=== PATIENT | female | born 1995 | race African-American/Black ===

== ENCOUNTER 2017-06-19 02:11 | Observation (INO) | payer MEDICAID ==
[2017-06-19] VITALS (8 sets, daily range): BP systolic 129–136; BP diastolic 60–71; PULSE 109–125; RESP 14–20; TEMP 98–98.1; O2SAT 98–100
[~2017-06-19 02:11] MED LIST: ALBU1.25 NEB; ALBUAER3 INH
[2017-06-19] MEDS ORDERED: ONDANSETRON HCL 4 MG/2 ML VIAL IVP PRN (02:15)
[2017-06-19] MEDS ORDERED: ACETAMINOPHEN 325 MG TAB PO PRN (02:15)
--- NOTE | 2017-06-19 02:52 | HHI.HP ---
[facility] No Primary Care Physician Admission Diagnosis Diagnoses: Chief Complaint: dyspnea and chest tightness Travel History International Travel<30 Days: No Contact w/Intl Traveler <30 Da: No History of Present Illness 21 y/o female with a history of asthma presented to the [place] ED with complaints of cough and chest tightness. She was found to have an elevated D- dimer and was taken for CTA but the timing of the dye did not allow for a clear picture so she was transferred to the main facility for follow up VQ Scan for possible PE. Patient states she woke up out of her sleep with a severe cough and dyspnea. With the cough she experienced chest tightness without any radiation and it was worse when she coughs. She states she has not had an asthma attack in many years and this one felt different. She did use her inhaler at home with no relief. She is currently resting, denies any chest pain , sob, fever or chills. She states she feels much better and is hungry. Denies any headache, nausea, vomiting, or dysuria. Denies any dark stools or heavy menses. She does have irregular menses and was taking control but that has not been recently. Denies any episodes of sitting for long periods of time, no history of PE or blood clotting disorders. She does not have a PCP or sampler first that she follows. Review of Systems Except as stated in HPI: all other systems reviewed are Neg Past Family Social History Past Medical History Asthma Past Surgical History Patient denies any surgical history Reported Medications Reported Meds & Active Scripts Active Reported Albuterol Neb (Albuterol Sulfate) 1.25 Mg/3 Ml Neb 1.25 Mg NEB Q6HR NEB PRN Proair Hfa 8.5 GM Inh (Albuterol Sulfate) 90 Mcg/Act Aer 2 Puff INH Q4-6H PRN 108 mcg/actuation Allergies: Coded Allergies: No Known Allergies (Unverified , 06/18/17) Active Ordered Medications Current Medications Medications (Trade) Dose Ordered Sig/Richie Route Start Time Stop Time Status Last Admin (11/28 NS 1000 ml Inj) 1,000 ml @ 75 mls/hr [id number] IV 06/19/17 02:15 (Tylenol) 650 mg Q4H PRN PO 06/19/17 02:15 (Zofran Inj) 4 mg Q6H PRN IVP 06/19/17 02:15 Methylprednisolone Sodium Succinate 40 mg 40 mg Q6HR IV PUSH 06/19/17 06:00 (Levaquin 750 Mg Premix Inj) 150 ml @ 100 mls/hr Q24H IV 06/19/17 03:00 (Lovenox Inj) 130 mg Q12H SQ 06/19/17 11:00 Family History Grandmother: DM No history of heart disease. Social History Patient denies any tobacco, alcohol or drug use. Physical Exam Physical Exam GENERAL: This is a well-nourished, well-developed patient, in no apparent distress. SKIN: No rashes, ecchymoses or lesions. Cool and dry. HEAD: Atraumatic. Normocephalic. EYES: Pupils equal round and reactive. Extraocular motions intact. ENT: Nose without bleeding, purulent drainage or septal hematoma. Airway patent. NECK: Trachea midline. No JVD or lymphadenopathy. CARDIOVASCULAR: Regular rate and rhythm without murmurs, gallops, or rubs. RESPIRATORY: Clear to auscultation. Breath sounds equal bilaterally. No wheezes , rales, or rhonchi. GASTROINTESTINAL: Abdomen soft, non-tender, nondistended. MUSCULOSKELETAL: Extremities without clubbing, cyanosis, or edema. No joint tenderness, effusion, or edema noted. No calf tenderness. NEUROLOGICAL: Awake and alert. Motor and sensory grossly within normal limits. Normal speech. Assessment and Plan Problem List: (1) Chest pain of uncertain etiology ICD Code: R07.89 Status: Acute (2) Acute asthma exacerbation ICD Code: J45.901 Status: Acute (3) Elevated d-dimer ICD Code: R79.89 Status: Acute (4) Acute kidney injury ICD Code: N17.9 Status: Acute (5) Leukocytosis ICD Code: D72.829 Status: Acute (6) Anemia ICD Code: D64.9 Status: Acute Assessment and Plan 21 y/o female with a history of asthma presented to the [place] ED with complaints of cough and chest tightness. She was found to have an elevated D- dimer and was taken for CTA but the timing of the dye did not allow for a clear picture so she was transferred to the main facility for follow up VQ Scan for possible PE. Acute asthma exacerbation -Albuterol nebs Q4 -Solumedrol IV -O2 if needed Chest pain, with elevated d-dimer, r/o PE D dimer .95, troponin .02, EKG reviewed shows sinus tachycardia CTA reviewed, due to opacification of pulmonary arteries and respiratory movement, PE can not be excluded. -VQ scan in AM -Lovenox for PE prophylaxis -Monitor tele -Serial troponin Leukocytosis, wbc 13.0, fever 100.1, likely reactive will r/o infection -UA ordered -CBC in AM -Levaquin IV Anemia, microcytic, hgb 7.8, no known history, likely chronic -Trend hgb -Iron studies ordered Acute kidney injury, creatine 1.2, unknown baseline, suspect dehydration -IVF for hydration -BMP in AM DVT prophylaxis: Lovenox Discussed Condition With Patient Problem Qualifiers (1) Leukocytosis: Qualified Code: D72.828 - Other elevated white blood cell (WBC) count (2) Anemia: Qualified Code: D64.9 - Anemia, unspecified type Dacia Dotson Jun 19, 2017 02:52
[2017-06-19] MEDS: LEVOFLOXACIN 750 MG PREMIX INJ 150 ML IV SCH (03:02)
[2017-06-19] MEDS: SODIUM CHLOR 0.45% 1000 ML INJ 1,000 ML IV SCH ×3 (03:02→20:22)
[2017-06-19] MEDS: RESP: ALBUTEROL 2.5 MG/3 ML NEB (SCH) NEB ×6 (03:40→23:22)
[2017-06-19] MEDS ORDERED: methylPREDNISolone SOD SUCC 40 MG/1 ML VIAL IV PUSH SCH (06:00)
[2017-06-19 07:19] LABS: AUTOMATED NEUTROPHIL # 11.9 TH/MM3 (1.8-7.7); BASOPHIL % 0.3 % (0.0-2.0); EOSINOPHIL # 0.2 TH/MM3 (0-0.4); EOSINOPHIL % 1.7 % (0.0-4.0); HEMO FLAGS DIFF FINAL; LYMPH % 4.6 % (9.0-44.0); LYMPHOCYTE # 0.6 TH/MM3 (1.0-4.8); MEAN CELL VOLUME 57.3 FL (80.0-100.0); MEAN CORPUSCULAR HEMOGLOBIN 17.5 PG (27.0-34.0); MEAN CORPUSCULAR HGB CONC 30.6 % (32.0-36.0); MONO % 5.5 % (0.0-8.0); NEUT % 87.9 % (16.0-70.0); PLATELET COUNT 345 TH/MM3 (150-450); RED BLOOD COUNT 4.54 MIL/MM3 (4.00-5.30); RED CELL DISTRIBUTION WIDTH 19.3 % (11.6-17.2); WHITE BLOOD COUNT 13.5 TH/MM3 (4.0-11.0)
[2017-06-19 07:50] LABS: FERRITIN 16 NG/ML (8-252); TRANSFERRIN IRON PROFILE 359 MG/DL (200-360)
[2017-06-19 07:54] LABS: ANION GAP 10 MEQ/L (5-15); BICARBONATE 21.3 MEQ/L (21.0-32.0); BLOOD UREA NITROGEN 7 MG/DL (7-18); CHLORIDE 106 MEQ/L (98-107); GLOMERULAR FILTRATION RATE 83 ML/MIN (>89); POTASSIUM 4.1 MEQ/L (3.5-5.1); SODIUM (NA) 137 MEQ/L (136-145)
[2017-06-19] MEDS ORDERED: ENOXAPARIN SODIUM 100 MG/ML SYRINGE SQ SCH (08:00)
--- NOTE | 2017-06-19 09:14 | HHI.PR ---
Subjective Remarks Follow up for anemia, asthma, shortness of breath. The patient reports no further episodes of chest pain or shortness of breath. Denies any cough. Denies any leg swelling or calf pain. She reports history of anemia however denies any further work up for her anemia. She denies any family history of blood/clotting disorders including no sickle cell. She does report menorrhagia, menstrual cycle lasts 7days with significantly heavy flow. Her LMP was 1 month ago. For her asthma, she has albuterol inhaler and nebulizer at home. Objective Vitals Vital Signs Date Time Temp Pulse Resp B/P Pulse Ox O2 Delivery O2 Flow Rate FiO2 06/19/17 07:15 98.0 109 14 129/60 99 06/19/17 03:44 116 20 133/63 100 06/19/17 03:40 98 06/19/17 02:30 116 I/O 06/18/17 06/18/17 06/18/17 06/19/17 06/19/17 06/19/17 07:00 15:00 23:00 07:00 15:00 23:00 Intake Total 510 ml Balance 510 ml Intake Oral 240 ml IV Total 270 ml Result Diagram: 06/19/17 0619 06/19/17 0619 Other Results Laboratory Tests Test 06/19/17 06/19/17 06:19 08:45 White Blood Count 13.5 TH/MM3 Red Blood Count 4.54 MIL/MM3 Hemoglobin 8.0 GM/DL Hematocrit 26.0 % Mean Corpuscular Volume 57.3 FL Mean Corpuscular Hemoglobin 17.5 PG Mean Corpuscular Hemoglobin 30.6 % Concent Red Cell Distribution Width 19.3 % Platelet Count 345 TH/MM3 Mean Platelet Volume 9.5 FL Neutrophils (%) (Auto) 87.9 % Lymphocytes (%) (Auto) 4.6 % Monocytes (%) (Auto) 5.5 % Eosinophils (%) (Auto) 1.7 % Basophils (%) (Auto) 0.3 % Neutrophils # (Auto) 11.9 TH/MM3 Lymphocytes # (Auto) 0.6 TH/MM3 Monocytes # (Auto) 0.7 TH/MM3 Eosinophils # (Auto) 0.2 TH/MM3 Basophils # (Auto) 0.0 TH/MM3 CBC Comment DIFF FINAL Differential Comment Sodium Level 137 MEQ/L Potassium Level 4.1 MEQ/L Chloride Level 106 MEQ/L Carbon Dioxide Level 21.3 MEQ/L Anion Gap 10 MEQ/L Blood Urea Nitrogen 7 MG/DL Creatinine 1.04 MG/DL Estimat Glomerular Filtration 83 ML/MIN Rate Random Glucose 156 MG/DL Calcium Level 9.1 MG/DL Iron Level 16 MCG/DL Total Iron Binding Capacity 503 MCG/DL Percent Iron Saturation 3.2 % Ferritin 16 NG/ML Troponin I LESS THAN 0.02 NG/ML Urine Color YELLOW Urine Turbidity CLEAR Urine pH 6.0 Urine Specific [place] 1.023 Urine Protein NEG mg/dL Urine Glucose (UA) 150 mg/dL Urine Ketones NEG mg/dL Urine Occult Blood NEG Urine Nitrite NEG Urine Bilirubin NEG Urine Urobilinogen LESS THAN 2.0 MG/DL Urine Leukocyte Esterase SMALL Urine RBC LESS THAN 1 /hpf Urine WBC 2 /hpf Urine Squamous Epithelial 3 /hpf Cells Microscopic Urinalysis Comment CULT NOT INDICATED Imaging Last Impressions Chest X-Ray 06/19/17 1108 Signed Impressions: Service Date/Time: Monday, June 19, 2017 13:48 - CONCLUSION: No acute disease. El Solano MD Lung Scan-V Nuclear Medicine 06/19/17 0000 Signed Impressions: Service Date/Time: Monday, June 19, 2017 10:44 - CONCLUSION: Low probability scan for pulmonary embolism Nickolas Waldron MD Lower Extremity Ultrasound 06/19/17 0000 Signed Impressions: Service Date/Time: Monday, June 19, 2017 08:03 - CONCLUSION: Negative for deep venous thrombosis. Zack Cox MD FACR Objective Remarks GENERAL: Well-nourished, well-developed young AA female patient in [facility]. SKIN: Warm and dry. No rash. HEENT: Normocephalic. Atraumatic.Pupils equal and round. Mucous membranes pink and moist. NECK: Supple. Trachea midline. CARDIOVASCULAR: Regular rate and rhythm. S1, S2 noted. No murmur appreciated. RESPIRATORY: No accessory muscle use. Clear to auscultation. Breath sounds equal bilaterally. GASTROINTESTINAL: Abdomen soft, non-tender, nondistended. Normoactive bowel sounds x4. MUSCULOSKELETAL: No obvious deformities. Extremities without clubbing, cyanosis , or edema. Bilateral calves nontender. NEUROLOGICAL: Awake and alert. No obvious cranial nerve deficits. Motor grossly within normal limits. Normal speech. PSYCHIATRIC: Appropriate mood and affect; insight and judgment normal. Procedures NONE Medications and IVs Current Medications Medications (Trade) Dose Ordered Sig/Richie Route Start Time Stop Time Status Last Admin (11/28 NS 1000 ml Inj) 1,000 ml @ 75 mls/hr [id number] IV 06/19/17 02:15 06/19/17 03:02 (Tylenol) 650 mg Q4H PRN PO 06/19/17 02:15 (Zofran Inj) 4 mg Q6H PRN IVP 06/19/17 02:15 Methylprednisolone Sodium Succinate 40 mg 40 mg Q6HR IV PUSH 06/19/17 06:00 06/19/17 06:53 (Levaquin 750 Mg Premix Inj) 150 ml @ 100 mls/hr Q24H IV 06/19/17 03:00 06/19/17 03:02 (Lovenox Inj) 130 mg Q12H SQ 06/19/17 11:00 Urinary Catheter: No Vascular Central Line Catheter: No A/P Problem List: (1) Chest pain of uncertain etiology ICD Code: R07.89 Status: Acute (2) Acute asthma exacerbation ICD Code: J45.901 Status: Acute (3) Elevated d-dimer ICD Code: R79.89 Status: Acute (4) Acute kidney injury ICD Code: N17.9 Status: Acute (5) Leukocytosis ICD Code: D72.829 Status: Acute (6) Anemia ICD Code: D64.9 Status: Acute Assessment and Plan 21-year-old female with a history of asthma and anemia presented to the [facility] ED with complaints of cough and chest tightness. She was found to have an elevated D-dimer and was taken for CTA but the timing of the dye did not allow for a clear picture so she was transferred to [facility] for follow up VQ Scan for possible PE. Acute asthma exacerbation: presented with SOB/chest tightness. -Continue Albuterol nebs Q4 -Given IV Solumedrol however much improved, changed to po Prednisone -O2 if needed, however O2 sat 99-100% on room air today -much improved Chest pain: with elevated d-dimer, r/o PE. D dimer 0.95, troponin .02, EKG reviewed shows sinus tachycardia. -CTA reviewed, due to opacification of pulmonary arteries and respiratory movement, PE can not be excluded. -VQ scan planned for today -check Doppler U/S -Full strength Lovenox for prophylaxis -Monitor on telemetry -ACS rule out with serial troponin negative x2 Leukocytosis, wbc 13.0, fever 100.1, likely reactive, will r/o infection. CT chest negative for infiltrate. -UA ordered and pending -CBC with slight increase of leukocytosis from 13K to 13.5K, suspect secondary to steroid administration -Continue IV Levaquin for now Microcytic Anemia: hgb 7.8, patient reports history of anemia but unknown etiology, does have menorrhagia however LMP 1 month ago -CBC with brionesrichelley bodies, target cells -Iron panel consistent with iron deficiency, will start ferrous sulfate bid with colace -discussed with Dr. Luevano, will consult hematology for further evaluation of anemia -monitor CBC Acute kidney injury: suspect secondary to dehydration. Creatinine 1.2, unknown baseline. -Give IVF for hydration -Repeat BMP shows improvement Cr 1.04 DVT prophylaxis: Lovenox Discharge Planning 0835hrs: Discharge pending doppler U/S, VQ scan, and hematology evaluation. Attending Statement The exam, history, and the medical decision-making described in the above note were completed with the assistance of the mid-level provider. I reviewed and agree with the findings presented. I attest that I had a [id number] encounter with the patient on the same day, and personally performed and documented my assessment and findings in the medical record. Problem Qualifiers (1) Leukocytosis: Qualified Code: D72.828 - Other elevated white blood cell (WBC) count (2) Anemia: Qualified Code: D64.9 - Anemia, unspecified type Ericka Stephens PA-C Jun 19, 2017 09:14 Reji Booth MD Jun 19, 2017 18:03
--- NOTE | 2017-06-19 09:15 | RADRPT ---
EXAM DATE/TIME: 06/19/2017 08:03 [facility] COMPARISON: No previous studies available for comparison. INDICATIONS : Bilateral leg swelling. MEDICAL HISTORY : Asthma. SURGICAL HISTORY : None. ENCOUNTER: Initial ACUITY: 2 day PAIN SCORE: 0/10 LOCATION: Bilateral leg. TECHNIQUE: Venous ultrasound of the left and right leg was performed from the inguinal ligament to the proximal calf. Real-time, color Doppler and spectral tracing, compression and augmentation techniques were us ed. FINDINGS: RIGHT LEG: There is normal compressibility of the deep venous system from the inguinal region to the proximal ca lf. No echogenic clot is seen in the lumen of the common femoral, femoral, popliteal, and posterior tibial veins. There is a normal response of the venous system to proximal and distal augmentation an d respiration. LEFT LEG: There is normal compressibility of the deep venous system from the inguinal region to the proximal ca lf. No echogenic clot is seen in the lumen of the common femoral, femoral, popliteal, and posterior tibial veins. There is a normal response of the venous system to proximal and distal augmentation an d respiration. CONCLUSION: Negative for deep venous thrombosis. Zack Cox MD FACR on June 19, 2017 at 9:13 Board Certified Radiologist. This report was verified electronically.
[2017-06-19 09:36] LABS: BLOOD, URINE NEG (NEG); COMMENT (UR) CULT NOT INDICATED; CULTURE IF INDICATED CULT NOT INDICATED; GLUCOSE,URINE 150 mg/dL (NEG); KETONE, URINE NEG (NEG); NITRITE,URINE NEG (NEG); SQUAMOUS EPITHELIAL CELL URINE 3 /hpf (0-5); URINE COLOR YELLOW (YELLW/STRAW)
[2017-06-19] MEDS: FERROUS SULFATE 325 MG (65 MG ELEMENTAL IRON) TAB PO SCH ×2 (12:05→18:14)
[2017-06-19] MEDS: ENOXAPARIN SODIUM 100 MG/ML SYRINGE SQ SCH (12:06)
--- NOTE | 2017-06-19 13:08 | RADRPT ---
EXAM DATE/TIME: 06/19/2017 10:44 [facility] COMPARISON: CT PULMONARY ANGIOGRAM, June 18, 2017, 22:50. US LEG BILATERAL VENOUS DOPPLER, June 19, 2017, 8:03. INDICATIONS : Short of breath and chest tightness. DOSE: 1.4 mCi Tc99m DTPA 8.5 mCi Tc99m MAA MEDICAL HISTORY : Asthma. SURGICAL HISTORY : None. ENCOUNTER: Initial ACUITY: 1 day PAIN SCALE: 2/10 LOCATION: Bilateral chest TECHNIQUE: Following five minutes of tidal breathing of DTPA aerosol, planar images of the lungs were performed in eight projections. The patient was then injected with MAA, and eight-view perfusion scan was perf ormed. FINDINGS: There is a homogeneous pattern of aerosol delivery to the periphery of both lungs. No focal ventilat ory defects are seen. The perfusion lung scan demonstrates a homogenous pattern of uptake in both lungs. No segmental or s ubsegmental defects are seen. CONCLUSION: Low probability scan for pulmonary embolism Nickolas Waldron MD on June 19, 2017 at 12:52 Board Certified Radiologist. This report was verified electronically.
--- NOTE | 2017-06-19 14:16 | RADRPT ---
EXAM DATE/TIME: 06/19/2017 13:48 [facility] COMPARISON: LUNG VENTILATION & PERFUSION SCAN, June 19, 2017, 10:44. INDICATIONS : Eval VQ scan. MEDICAL HISTORY : Asthma. SURGICAL HISTORY : None. ENCOUNTER: Subsequent ACUITY: 1 day PAIN SCORE: 0/10 LOCATION: Bilateral chest FINDINGS: A single view of the chest demonstrates the lungs to be symmetrically aerated without evidence of mas s, infiltrate or effusion. The cardiomediastinal contours are unremarkable. Osseous structures are intact. CONCLUSION: No acute disease. El Solano MD on June 19, 2017 at 14:14 Board Certified Radiologist. This report was verified electronically.
[2017-06-19] MEDS ORDERED: predniSONE 20 MG TAB PO SCH (18:00)
[2017-06-19 18:26] LABS: HEMOGLOBIN A1a 1.6 %; HEMOGLOBIN A1b 1.5 %; HEMOGLOBIN Ao 84.7 %; HEMOGLOBIN LA1C 2.2 %; HEMOGLOBIN P3 3.5 %
[2017-06-19] MEDS: DOCUSATE SODIUM 100 MG CAP PO SCH (20:19)
[2017-06-19 21:02] LABS: MEAN CORPUSCULAR HGB CONC 29.6 % (32.0-36.0)
[2017-06-19] MEDS ORDERED: IRON SUCROSE INJ 200 MG in SODIUM CHLORIDE 0.9% INJ 100 ML IV SCH (22:30)
[2017-06-20] VITALS (10 sets, daily range): BP systolic 113–139; BP diastolic 56–78; PULSE 67–112; RESP 14–18; TEMP 97.7–99.1; O2SAT 97–100
[2017-06-20] MEDS: ENOXAPARIN SODIUM 100 MG/ML SYRINGE SQ SCH (00:12)
[2017-06-20] MEDS: SODIUM CHLOR 0.45% 1000 ML INJ 1,000 ML IV SCH ×2 (03:02→08:45)
[2017-06-20] MEDS: LEVOFLOXACIN 750 MG PREMIX INJ 150 ML IV SCH (03:02)
[2017-06-20] MEDS: RESP: ALBUTEROL 2.5 MG/3 ML NEB (SCH) NEB ×5 (03:49→21:41)
[2017-06-20 07:24] LABS: AUTOMATED NEUTROPHIL # 14.1 TH/MM3 (1.8-7.7); BASOPHIL % 0.1 % (0.0-2.0); HEMATOCRIT 24.9 % (35.0-46.0); HEMO FLAGS DIFF FINAL; LYMPH % 10.5 % (9.0-44.0); LYMPHOCYTE # 1.8 TH/MM3 (1.0-4.8); MEAN CELL VOLUME 57.2 FL (80.0-100.0); MEAN CORPUSCULAR HEMOGLOBIN 16.9 PG (27.0-34.0); MONO % 8.3 % (0.0-8.0); NEUT % 81.1 % (16.0-70.0); PLATELET COUNT 327 TH/MM3 (150-450); RED BLOOD COUNT 4.36 MIL/MM3 (4.00-5.30); RED CELL DISTRIBUTION WIDTH 19.2 % (11.6-17.2); WHITE BLOOD COUNT 17.4 TH/MM3 (4.0-11.0)
[2017-06-20 07:29] LABS: RETIC % 1.9 % (0.4-3.0); REVIEW FLAG FINAL
[2017-06-20 07:42] LABS: BICARBONATE 23.7 MEQ/L (21.0-32.0); POTASSIUM 3.9 MEQ/L (3.5-5.1)
[2017-06-20 07:48] LABS: AST (GOT) 5 U/L (16-38)
[2017-06-20 07:51] LABS: ALKALINE PHOSPHATASE 52 U/L (45-117); ALT (GPT) 15 U/L (9-42); TOTAL BILIRUBIN ADULT LESS THAN 0.1 MG/DL (0.2-1.0)
--- NOTE | 2017-06-20 08:13 | HHI.PR ---
Subjective Remarks Follow up for anemia. The patient reports feeling well today. Denies any chest pain, shortness of breath, or abdominal complaints. Denies any menstrual bleeding, hematochezia, melena. She has never had a work up for her anemia. Objective Vitals Vital Signs Date Time Temp Pulse Resp B/P Pulse Ox O2 Delivery O2 Flow Rate FiO2 06/20/17 07:30 98 06/20/17 07:08 98.0 102 14 128/65 100 06/20/17 00:04 112 06/20/17 00:00 97.7 67 18 113/65 97 06/19/17 20:38 100 21 06/19/17 15:37 98.1 114 15 136/71 100 06/19/17 09:05 99 21 I/O 06/19/17 06/19/17 06/19/17 06/20/17 06/20/17 06/20/17 07:00 15:00 23:00 07:00 15:00 23:00 Intake Total 510 ml 720 ml Balance 510 ml 720 ml Intake Oral 240 ml IV Total 270 ml 720 ml Result Diagram: 06/20/17 0620 06/20/17 06 Other Results Laboratory Tests Test 06/19/17 06/19/17 06/20/17 06:19 08:45 06:20 Hemoglobin A1c 5.9 % Iron Level 16 MCG/DL Total Iron Binding Capacity 503 MCG/DL Percent Iron Saturation 3.2 % Ferritin 16 NG/ML Troponin I LESS THAN 0.02 NG/ML Urine Color YELLOW Urine Turbidity CLEAR Urine pH 6.0 Urine Specific [place] 1.023 Urine Protein NEG mg/dL Urine Glucose (UA) 150 mg/dL Urine Ketones NEG mg/dL Urine Occult Blood NEG Urine Nitrite NEG Urine Bilirubin NEG Urine Urobilinogen LESS THAN 2.0 MG/DL Urine Leukocyte Esterase SMALL Urine RBC LESS THAN 1 /hpf Urine WBC 2 /hpf Urine Squamous Epithelial 3 /hpf Cells Microscopic Urinalysis Comment CULT NOT INDICATED White Blood Count 17.4 TH/MM3 Red Blood Count 4.36 MIL/MM3 Hemoglobin 7.4 GM/DL Hematocrit 24.9 % Mean Corpuscular Volume 57.2 FL Mean Corpuscular Hemoglobin 16.9 PG Mean Corpuscular Hemoglobin 29.6 % Concent Red Cell Distribution Width 19.2 % Platelet Count 327 TH/MM3 Mean Platelet Volume 9.0 FL Neutrophils (%) (Auto) 81.1 % Lymphocytes (%) (Auto) 10.5 % Monocytes (%) (Auto) 8.3 % Eosinophils (%) (Auto) 0.0 % Basophils (%) (Auto) 0.1 % Neutrophils # (Auto) 14.1 TH/MM3 Lymphocytes # (Auto) 1.8 TH/MM3 Monocytes # (Auto) 1.4 TH/MM3 Eosinophils # (Auto) 0.0 TH/MM3 Basophils # (Auto) 0.0 TH/MM3 CBC Comment DIFF FINAL Differential Comment Reticulocyte Count 1.9 % Absolute Reticulocyte Count 83.8 MIL/L Haptoglobin 277 MG/DL Sodium Level 140 MEQ/L Potassium Level 3.9 MEQ/L Chloride Level 108 MEQ/L Carbon Dioxide Level 23.7 MEQ/L Anion Gap 8 MEQ/L Blood Urea Nitrogen 8 MG/DL Creatinine 0.73 MG/DL Estimat Glomerular Filtration 124 ML/MIN Rate Random Glucose 112 MG/DL Calcium Level 9.0 MG/DL Total Bilirubin LESS THAN 0.1 MG/DL Direct Bilirubin LESS THAN 0.1 MG/DL Indirect Bilirubin 0.0 MG/DL Aspartate Amino Transf 5 U/L (AST/SGOT) Alanine Aminotransferase 15 U/L (ALT/SGPT) Alkaline Phosphatase 52 U/L Lactate Dehydrogenase 148 U/L Total Protein 7.3 GM/DL Albumin 3.0 GM/DL Vitamin B12 Level 394 PG/ML Thyroid Stimulating Hormone 0.605 uIU/ML 3rd Gen Hepatitis B Surface Antigen NEGATIVE Hepatitis B Core IgM Antibody NEGATIVE Hepatitis C Antibody NEGATIVE HIV (1&2) Antibody NEGATIVE Imaging Last Impressions Chest X-Ray 06/19/17 1108 Signed Impressions: Service Date/Time: Monday, June 19, 2017 13:48 - CONCLUSION: No acute disease. El Solano MD Lung Scan-VQ Nuclear Medicine 06/19/17 0000 Signed Impressions: Service Date/Time: Monday, June 19, 2017 10:44 - CONCLUSION: Low probability scan for pulmonary embolism Nickolas Waldron MD Lower Extremity Ultrasound 06/19/17 0000 Signed Impressions: Service Date/Time: Monday, June 19, 2017 08:03 - CONCLUSION: Negative for deep venous thrombosis. Zack Cox MD FACR Objective Remarks GENERAL: Well-nourished, well-developed young AA female patient in [place]. SKIN: Warm and dry. No rash. HEENT: Normocephalic. Atraumatic.Pupils equal and round. Mucous membranes pink and moist. CARDIOVASCULAR: Regular rate and rhythm. S1, S2 noted. No murmur appreciated. RESPIRATORY: No accessory muscle use. Clear to auscultation. Breath sounds equal bilaterally. GASTROINTESTINAL: Abdomen soft, non-tender, nondistended. Normoactive bowel sounds x4. MUSCULOSKELETAL: No obvious deformities. Extremities without clubbing, cyanosis , or edema. Bilateral calves nontender. NEUROLOGICAL: Awake and alert. No obvious cranial nerve deficits. Motor grossly within normal limits. Normal speech. PSYCHIATRIC: Appropriate mood and affect; insight and judgment normal. Procedures NONE Medications and IVs Current Medications Medications (Trade) Dose Ordered Sig/Richie Route Start Time Stop Time Status Last Admin (11/28 NS 1000 ml Inj) 1,000 ml @ 150 mls/hr Q6H40M IV 06/19/17 02:15 06/20/17 03:02 (Tylenol) 650 mg Q4H PRN PO 06/19/17 02:15 Ondansetron HCl 4 mg 4 mg Q6H PRN IVP 06/19/17 02:15 (Levaquin 750 Mg Premix Inj) 150 ml @ 100 mls/hr Q24H IV 06/19/17 03:00 06/20/17 03:02 (Lovenox Inj) 130 mg Q12H SQ 06/19/17 11:00 06/20/17 00:12 (Deltasone) 40 mg BID PO 06/19/17 18:00 06/19/17 18:14 (Ferrous Sulfate) 325 mg BID@,17 PO 06/19/17 12:00 06/19/17 18:14 Docusate Sodium 100 mg 100 mg BID PO 06/19/17 21:00 06/19/17 20:19 (Venofer Inj/NS Inj) 110 ml @ 110 mls/hr DAILY IV 06/19/17 22:30 06/21/17 09:59 06/20/17 00:12 Urinary Catheter: No Vascular Central Line Catheter: No A/P Problem List: (1) Chest pain of uncertain etiology ICD Code: R07.89 Status: Acute (2) Acute asthma exacerbation ICD Code: J45.901 Status: Acute (3) Elevated d-dimer ICD Code: R79.89 Status: Acute (4) Acute kidney injury ICD Code: N17.9 Status: Acute (5) Leukocytosis ICD Code: D72.829 Status: Acute (6) Anemia ICD Code: D64.9 Status: Acute Assessment and Plan 21-year-old female with a history of asthma and anemia presented to the [facility] ED with complaints of cough and chest tightness. She was found to have an elevated D-dimer and was taken for CTA but the timing of the dye did not allow for a clear picture so she was transferred to [facility] for follow up VQ Scan for possible PE. Acute asthma exacerbation with acute bronchitis: presented with SOB/chest tightness. -Continue Albuterol nebs Q4 -Given IV Solumedrol however much improved, changed to po Prednisone -O2 if needed, however O2 sat 99-100% on room air today -much improved, taper prednisone -change to po Levaquin Chest pain: with elevated d-dimer, r/o PE. D dimer 0.95, troponin .02, EKG reviewed shows sinus tachycardia. -CTA reviewed, due to opacification of pulmonary arteries and respiratory movement, PE can not be excluded. -VQ scan with low probability for PE -Doppler U/S negative for DVT -Full strength Lovenox for prophylaxis -Monitor on telemetry -ACS rule out with serial troponin negative x2 -chest pain resolved Leukocytosis, wbc 13.0, fever 100.1, likely reactive, will r/o infection. CT chest negative for infiltrate. -UA negative -CBC with increase of leukocytosis from 13K --> 13.5K --> 17.4K, suspect secondary to steroid administration -Switch to po Levaquin Microcytic Anemia: hgb 7.8, patient reports history of anemia but unknown etiology, does have menorrhagia however LMP 1 month ago -CBC with briones-jolly bodies, target cells -Iron panel consistent with iron deficiency, will start ferrous sulfate bid with colace -consulted hematology for further evaluation of anemia -heme started patient on IV Venofer x3 -anemia work up in progress -hemoccult ordered -monitor CBC, slight decrease today from Hgb 8.0 --> 7.4. Acute kidney injury: suspect secondary to dehydration. Creatinine 1.2, unknown baseline. -Give IVF for hydration -Repeat BMP shows improvement Cr 1.04 -avoid nephrotoxins DVT prophylaxis: Lovenox Discharge Planning Anemia work up in progress. Possible discharge tomorrow. Receiving IV Venofer treatment. Attending Statement The exam, history, and the medical decision-making described in the above note were completed with the assistance of the mid-level provider. I reviewed and agree with the findings presented. I attest that I had a [id number] encounter with the patient on the same day, and personally performed and documented my assessment and findings in the medical record. Seen in her bedroom in the presence of her Mother present at all times while I was in the Room Mrs. Ramonita Banks all questions answered to the best of my abilities, expected discharge in am tomorrow after she receives her last Venofer Dose Problem Qualifiers (1) Leukocytosis: Qualified Code: D72.828 - Other elevated white blood cell (WBC) count (2) Anemia: Qualified Code: D64.9 - Anemia, unspecified type Ericka Stephens PA-C Jun 20, 2017 08:13 Reji Booth MD Jun 20, 2017 17:16
--- NOTE | 2017-06-20 09:05 | MB ---
cc: AYAKA MORRISON DATE OF CONSULTATION 06/19/2017 DATE OF 1995 REASON FOR CONSULTATION Patient with severe microcytic anemia. CHIEF COMPLAINT Dyspnea and chest pain. HISTORY OF PRESENT ILLNESS This is a 21-year-old female who has a past medical history of asthma who presented to the emergency department with complaints of cough, chest tightness and dyspnea. She developed these symptoms over the last 3-4 days and these had progressively worsened. In the emergency department D-dimers were checked and these were elevated. This raised the suspicion for pulmonary thromboembolism. The patient underwent CTA; however, this was indeterminate. She was transferred to the [facility] Emergency Department for a VQ scan. The VQ scan showed a low probability of pulmonary embolism. The patient was found to have a low hemoglobin of 7.8 and severe microcytosis of 55. The patient states that she has a history of menorrhagia and has been taking oral iron pills in the past. She does not have a consistent primary care physician. She uses inhalers for her asthma. She denies any headaches. No cough or congestion. No fevers. No hemoptysis. She does endorse shortness of breath. No abdominal pain. No lower extremity edema or pain. She does not have any family history of blood disorders. No history of sickle cell disease. She has not noticed any bright red blood per rectum or melena. REVIEW OF SYSTEMS A comprehensive 14-point review of systems was completed, negative except as described in the HPI. PAST MEDICAL HISTORY 1. Iron deficiency anemia. 2. Asthma. 3. Menorrhagia. PAST SURGICAL HISTORY None. MEDICATIONS 1. Albuterol nebulizer q.6 hours p.r.n. 2. ProAir HFA 8.5 grams INH q.4-6 hours p.r.n. ALLERGIES No known drug allergies. FAMILY HISTORY Significant for diabetes. No blood disorders. SOCIAL HISTORY She does not drink alcohol. No illicit drug use. No tobacco abuse. PHYSICAL EXAMINATION VITAL SIGNS: Blood pressure is 136/71, pulse is 100, temperature is 98.1, pulse ox shows and oxygen at 100%. LABORATORY DATA WBCs 13.5, hemoglobin is 8, platelet count is 345. Serum chemistries show a sodium of 137, potassium 4.1, chloride 106, CO2 21.3, BUN is 7, creatinine 1.04, GFR is 83, calcium is 9.1. Serum iron is 16, TIBC is 503, iron saturation is 3.2. Troponins are less than 0.02. UA is negative for any infection. IMAGING STUDIES Chest x-ray was reviewed and there is no acute cardiopulmonary disease. Lower extremity ultrasound was also reviewed and no evidence of DVT. Lung VQ scan was reviewed and shows low probability of pulmonary embolism. ASSESSMENT AND PLAN This is a 21-year-old -[place] female who has a history of asthma and is obese. She also has a history of menorrhagia and anemia. She presents to the emergency department with chest pain, shortness of breath and chest tightness. 1. Severe microcytic anemia. Anemia studies are consistent with iron deficiency. She will benefit from iron infusion. We need to make sure there is no underlying hemolysis. I will check bilirubin components, LDH, haptoglobin and LDH. We will obtain a hepatitis and HIV profile, obtain stool hemoccult to rule out any GI sources of anemia. 2. Chest pain, possibly due to anemia. VQ scan showed low probability of pulmonary embolism. 3. Leukocytosis with WBC of 13 and low-grade fevers. The likelihood of underlying ? viral infection. Further workup per primary team. 4. Acute kidney insufficiency, likely prerenal. Trend renal functions. Thank you for allowing me to participate in the care of this patient. I will continue to follow this patient along. MD KELI Olmos/CRISTI /10:26 PM /8:55 AM
[2017-06-20] MEDS: DOCUSATE SODIUM 100 MG CAP PO SCH ×2 (11:30→23:24)
[2017-06-20] MEDS: predniSONE 20 MG TAB PO SCH ×2 (11:30→23:24)
[2017-06-20] MEDS: FERROUS SULFATE 325 MG (65 MG ELEMENTAL IRON) TAB PO SCH ×2 (11:30→18:22)
--- NOTE | 2017-06-20 17:31 | PD.ONC.PN ---
Subjective Subjective Remarks feels weak and short of breath O2 sats in the high 90s on O2 drop in hemoglobin today stool heme-occult pending d/w rn patient's mother present in the room--answered her questions Objective Data Date Time Temp Pulse Resp B/P Pulse Ox O2 Delivery O2 Flow Rate FiO2 06/20/17 15:20 98.3 104 15 131/78 100 06/20/17 11:14 99.1 85 15 139/64 100 06/20/17 08:00 71 06/20/17 07:30 98 06/20/17 07:08 98.0 102 14 128/65 100 06/20/17 00:04 112 06/20/17 00:00 97.7 67 18 113/65 97 06/19/17 20:38 100 21 Result Diagram: 06/20/1720 06/20/17 0620 Laboratory Results Laboratory Tests Test 06/20/17 06:20 White Blood Count 17.4 TH/MM3 Red Blood Count 4.36 MIL/MM3 Hemoglobin 7.4 GM/DL Hematocrit 24.9 % Mean Corpuscular Volume 57.2 FL Mean Corpuscular Hemoglobin 16.9 PG Mean Corpuscular Hemoglobin 29.6 % Concent Red Cell Distribution Width 19.2 % Platelet Count 327 TH/MM3 Mean Platelet Volume 9.0 FL Neutrophils (%) (Auto) 81.1 % Lymphocytes (%) (Auto) 10.5 % Monocytes (%) (Auto) 8.3 % Eosinophils (%) (Auto) 0.0 % Basophils (%) (Auto) 0.1 % Neutrophils # (Auto) 14.1 TH/MM3 Lymphocytes # (Auto) 1.8 TH/MM3 Monocytes # (Auto) 1.4 TH/MM3 Eosinophils # (Auto) 0.0 TH/MM3 Basophils # (Auto) 0.0 TH/MM3 CBC Comment DIFF FINAL Differential Comment Reticulocyte Count 1.9 % Absolute Reticulocyte Count 83.8 MIL/L Haptoglobin 277 MG/DL Sodium Level 140 MEQ/L Potassium Level 3.9 MEQ/L Chloride Level 108 MEQ/L Carbon Dioxide Level 23.7 MEQ/L Anion Gap 8 MEQ/L Blood Urea Nitrogen 8 MG/DL Creatinine 0.73 MG/DL Estimat Glomerular Filtration 124 ML/MIN Rate Random Glucose 112 MG/DL Calcium Level 9.0 MG/DL Total Bilirubin LESS THAN 0.1 MG/DL Direct Bilirubin LESS THAN 0.1 MG/DL Indirect Bilirubin 0.0 MG/DL Aspartate Amino Transf 5 U/L (AST/SGOT) Alanine Aminotransferase 15 U/L (ALT/SGPT) Alkaline Phosphatase 52 U/L Lactate Dehydrogenase 148 U/L Total Protein 7.3 GM/DL Albumin 3.0 GM/DL Vitamin B12 Level 394 PG/ML Thyroid Stimulating Hormone 0.605 uIU/ML 3rd Gen Hepatitis B Surface Antigen NEGATIVE Hepatitis B Core IgM Antibody NEGATIVE Hepatitis C Antibody NEGATIVE HIV (1&2) Antibody NEGATIVE Administered Medications Medications (Trade) Dose Ordered Sig/Richie Route PRN Reason Start Time Stop Time Status Last Admin Dose Admin Ferrous Sulfate (Ferrous Sulfate) 325 mg BID@, PO 06/19/17 12:00 06/20/17 11:30 Docusate Sodium (Colace) 100 mg BID PO 06/19/17 21:00 06/20/17 11:30 Prednisone (Deltasone) 20 mg BID PO 06/20/17 09:00 06/20/17 11:30 Objective Remarks GENERAL: nad SKIN: Warm and dry. NECK: Supple, trachea midline. No JVD or lymphadenopathy. LYMPHATIC: No adenopathy. CARDIOVASCULAR: Regular rate and rhythm without murmurs. RESPIRATORY: Breath sounds equal bilaterally. No accessory muscle use. GASTROINTESTINAL: Abdomen soft, non-tender, nondistended. EXTREMITIES: No cyanosis, or edema. MUSCULOSKELETAL: Adequate muscle tone. NEUROLOGICAL: No obvious focal deficit. Awake, alert, and oriented x3. PSYCHIATRIC: Appropriate mood and affect; insight and judgment normal. Assessment/Plan Problem List: (1) Dyspnea Status: Acute (2) Acute asthma exacerbation Status: Acute (3) Elevated d-dimer Status: Acute (4) Chest pain of uncertain etiology Status: Acute (5) Anemia Status: Acute (6) Leukocytosis Status: Acute (7) Acute kidney injury Status: Acute (8) Iron deficiency Status: Acute Assessment 21-year-old -[place] Citizen female who has a history of asthma and is obese. She also has a history of menorrhagia and anemia. She presents to the emergency department with chest pain, shortness of breath and chest tightness. 1. Severe microcytic anemia. Anemia studies are consistent with iron deficiency. - getting iron infusion - no evidence of hemolysis - B12 / folate levels pending - Hep and HIV profile negative - Symptomatic anemia--will transfuse 2 units of PRBC - Will need outpatient follow-up to receive iron infusions - follow-up on stool heme-occult 2. Chest pain, possibly due to anemia. VQ scan showed low probability of pulmonary embolism. 3. Leukocytosis with WBC of 13 and low-grade fevers. The likelihood of underlying ? viral infection. Further workup per primary team. 4. Acute kidney insufficiency, likely prerenal. normal Cr now Discussed with family discussed with RN Would be okay to d/c tomorrow if remains stable. Problem Qualifiers (1) Anemia: Qualified Code: D64.9 - Anemia, unspecified type (2) Leukocytosis: Qualified Code: D72.828 - Other elevated white blood cell (WBC) count Abdulkadir Ramirez MD Jun 20, 2017 17:31
[2017-06-20] MEDS ORDERED: ENOXAPARIN SODIUM 40 MG/0.4 ML SYRINGE SQ SCH (21:00)
[2017-06-20 21:15] LABS: MEAN CORPUSCULAR HGB CONC 28.9 % (32.0-36.0)
[2017-06-21] VITALS (13 sets, daily range): BP systolic 103–141; BP diastolic 53–82; PULSE 71–97; RESP 14–18; TEMP 97.3–98.9; O2SAT 97–100
[2017-06-21] MEDS ORDERED: IRON SUCROSE INJ 200 MG in SODIUM CHLORIDE 0.9% INJ 100 ML IV SCH ×2
[2017-06-21] MEDS: RESP: ALBUTEROL 2.5 MG/3 ML NEB (SCH) NEB ×5 (00:49→16:24)
[2017-06-21] MEDS: LEVOFLOXACIN 750 MG TAB PO SCH ×2 (07:09→10:57)
[2017-06-21] MEDS ORDERED: diphenhydrAMINE HCL 25 MG CAP PO PRN (07:45)
[2017-06-21] MEDS ORDERED: SODIUM CHLOR 0.9% 250 ML INJ 250 ML IV ONE (07:45)
[2017-06-21] MEDS ORDERED: ACETAMINOPHEN 325 MG TAB PO PRN (07:45)
[2017-06-21 07:59] LABS: AUTOMATED NEUTROPHIL # 9.3 TH/MM3 (1.8-7.7); BASOPHIL # 0.1 TH/MM3 (0-0.2); BASOPHIL % 0.5 % (0.0-2.0); HEMATOCRIT 26.8 % (35.0-46.0); HEMO FLAGS DIFF FINAL; LYMPHOCYTE # 2.4 TH/MM3 (1.0-4.8); MEAN CORPUSCULAR HEMOGLOBIN 16.8 PG (27.0-34.0); MONO % 5.8 % (0.0-8.0); NEUT % 74.7 % (16.0-70.0); PLATELET COUNT 405 TH/MM3 (150-450); RED BLOOD COUNT 4.63 MIL/MM3 (4.00-5.30); WHITE BLOOD COUNT 12.5 TH/MM3 (4.0-11.0)
--- NOTE | 2017-06-21 09:02 | HHI.PR ---
Subjective Remarks Follow up for anemia. The patient reports feeling well today, denies any lightheadedness, dizziness, chest pain, shortness of breath, or abdominal complaints. Receiving blood transfusion. Asking when she can go home. Objective Vitals Vital Signs Date Time Temp Pulse Resp B/P Pulse Ox O2 Delivery O2 Flow Rate FiO2 06/21/17 08:51 97.4 78 15 141/82 100 06/21/17 08:35 97.8 88 16 139/74 100 06/21/17 07:53 97.7 90 14 126/64 100 06/21/17 07:38 98 21 06/21/17 04:54 91 06/21/17 03:49 98.4 97 17 103/53 99 06/21/17 00:40 91 06/20/17 23:49 98.5 69 17 119/56 99 06/20/17 21:42 100 21 06/20/17 21:05 98.5 77 18 127/57 99 06/20/17 15:20 98.3 104 15 131/78 100 06/20/17 11:14 99.1 85 15 139/64 100 Result Diagram: 06/21/17 0720 06/20/17 0620 Imaging Last Impressions Chest X-Ray 06/19/17 1108 Signed Impressions: Service Date/Time: Monday, June 19, 2017 13:48 - CONCLUSION: No acute disease. El Solano MD Lung Scan- Nuclear Medicine 06/19/17 0000 Signed Impressions: Service Date/Time: Monday, June 19, 2017 10:44 - CONCLUSION: Low probability scan for pulmonary embolism Nickolas Waldron MD Lower Extremity Ultrasound 06/19/17 0000 Signed Impressions: Service Date/Time: Monday, June 19, 2017 08:03 - CONCLUSION: Negative for deep venous thrombosis. Zack Cox MD FACR Objective Remarks GENERAL: Well-nourished, well-developed young AA female patient in [facility]. SKIN: Warm and dry. No rash. HEENT: Normocephalic. Atraumatic.Pupils equal and round. Mucous membranes pink and moist. CARDIOVASCULAR: Regular rate and rhythm. S1, S2 noted. No murmur appreciated. RESPIRATORY: No accessory muscle use. Clear to auscultation. Breath sounds equal bilaterally. GASTROINTESTINAL: Abdomen soft, non-tender, nondistended. Normoactive bowel sounds x4. MUSCULOSKELETAL: No obvious deformities. Extremities without clubbing, cyanosis , or edema. NEUROLOGICAL: Awake and alert. No obvious cranial nerve deficits. Motor grossly within normal limits. Normal speech. PSYCHIATRIC: Appropriate mood and affect; insight and judgment normal. Procedures NONE Medications and IVs Current Medications Medications (Trade) Dose Ordered Sig/Richie Route Start Time Stop Time Status Last Admin (Tylenol) 650 mg Q4H PRN PO 06/19/17 02:15 06/21/17 07:42 (Zofran Inj) 4 mg Q6H PRN IVP 06/19/17 02:15 (Ferrous Sulfate) 325 mg BID@12,17 PO 06/19/17 12:00 06/20/17 18:22 (Colace) 100 mg BID PO 06/19/17 21:00 06/20/17 23:24 (Deltasone) 20 mg BID PO 06/20/17 09:00 06/20/17 23:24 (Lovenox Inj) 40 mg HS SQ 06/20/17 21:00 06/20/17 23:24 Levofloxacin 750 mg 750 mg DAILY PO 06/21/17 07:00 06/21/17 07:09 (NS 250 ml Inj) 250 ml @ 15 mls/hr ONCE ONCE IV 06/21/17 07:45 06/22/17 00:24 06/21/17 08:16 (Tylenol) 650 mg Q4H PRN PO 06/21/17 07:45 06/21/17 11:46 (Benadryl) 25 mg Q4H PRN PO 06/21/17 07:45 06/21/17 11:46 06/21/17 07:42 A/P Problem List: (1) Chest pain of uncertain etiology ICD Code: R07.89 Status: Acute (2) Acute asthma exacerbation ICD Code: J45.901 Status: Acute (3) Elevated d-dimer ICD Code: R79.89 Status: Acute (4) Acute kidney injury ICD Code: N17.9 Status: Acute (5) Leukocytosis ICD Code: D72.829 Status: Acute (6) Anemia ICD Code: D64.9 Status: Acute Assessment and Plan 21-year-old female with a history of asthma and anemia presented to the [place] ED with complaints of cough and chest tightness. She was found to have an elevated D-dimer and was taken for CTA but the timing of the dye did not allow for a clear picture so she was transferred to [facility] for follow up VQ Scan for possible PE. Acute asthma exacerbation with acute bronchitis: presented with SOB/chest tightness. -Continue Albuterol nebs Q4 -Given IV Solumedrol however much improved, changed to po Prednisone -O2 if needed, however O2 sat 99-100% on room air today -much improved, taper prednisone -change to po Levaquin -resolved Chest pain: with elevated d-dimer, r/o PE. D dimer 0.95, troponin .02, EKG reviewed shows sinus tachycardia. -CTA reviewed, due to opacification of pulmonary arteries and respiratory movement, PE can not be excluded. -VQ scan with low probability for PE -Doppler U/S negative for DVT -Full strength Lovenox for prophylaxis -Monitor on telemetry -ACS rule out with serial troponin negative x2 -chest pain resolved Leukocytosis, wbc 13.0, fever 100.1, likely reactive, will r/o infection. CT chest negative for infiltrate. -UA negative -CBC with increase of leukocytosis from 13K --> 13.5K --> 17.4K, suspect secondary to steroid administration -Switch to po Levaquin Microcytic Anemia: hgb 7.8, patient reports history of anemia but unknown etiology, does have menorrhagia however LMP 1 month ago -CBC with briones-jolly bodies, target cells -Iron panel consistent with iron deficiency, will start ferrous sulfate bid with colace -consulted hematology for further evaluation of anemia -heme started patient on IV Venofer x3 -anemia work up in progress -hemoccult ordered -monitor CBC, slight decrease from Hgb 8.0 --> 7.4. -2u pRBC transfusion ordered by hematology -repeat H&H following transfusion Acute kidney injury: suspect secondary to dehydration. Creatinine 1.2, unknown baseline. -Give IVF for hydration -Repeat BMP shows improvement Cr 1.04 -avoid nephrotoxins DVT prophylaxis: Lovenox Discharge Planning 0830hrs: Hopefully discharge today after blood transfusion if Hgb improves and cleared by hematology. 1700hrs: Repeat Hgb 9.2 s/p 2u pRBC transfusion and patient cleared for discharge by hematology. Will discharge home. See discharge summary. Problem Qualifiers (1) Leukocytosis: Qualified Code: D72.828 - Other elevated white blood cell (WBC) count (2) Anemia: Qualified Code: D64.9 - Anemia, unspecified type Ericka Stephens PA-C Jun 21, 2017 09:02
[2017-06-21] MEDS: DOCUSATE SODIUM 100 MG CAP PO SCH (10:57)
[2017-06-21] MEDS: predniSONE 20 MG TAB PO SCH (10:58)
[2017-06-21] MEDS: FERROUS SULFATE 325 MG (65 MG ELEMENTAL IRON) TAB PO SCH (11:55)
[2017-06-21] MEDS ORDERED: LEVA750T9 PO (16:00)
[2017-06-21] MEDS ORDERED: FERR325T20 PO (16:00)
[2017-06-21] MEDS ORDERED: DOCU1CAP39 PO (16:00)
--- NOTE | 2017-06-21 16:02 | HHI.DCPOC ---
Discharge Care Plan Diagnosis: (1) Acute asthma exacerbation (2) Anemia (3) Iron deficiency Goals to Promote Your Health * To prevent worsening of your condition and complications * To maintain your health at the optimal level Directions to Meet Your Goals Take your medications as prescribed Follow your dietary instruction Follow activity as directed Keep your appointments as scheduled Take your immunizations and boosters as scheduled If your symptoms worsen call your PCP, if no PCP go to Urgent Care Center or Emergency Room Smoking is Dangerous to Your Health. Avoid second hand smoke Call the 24-hour hour crisis hotline for domestic abuse at Ericka Stephens PA-C Jun 21, 2017 16:01
[2017-06-21 17:06] LABS: HEMATOCRIT 30.5 % (35.0-46.0); REVIEW FLAG FINAL
--- NOTE | 2017-06-22 00:23 | PD.ONC.PN ---
Subjective Subjective Remarks Late note entry--patient seen on 06/21 Getting pRBC transfusion IV iron completed Ok to d/c o/p follow-up in [facility] Objective Data Date Time Temp Pulse Resp B/P Pulse Ox O2 Delivery O2 Flow Rate FiO2 06/21/17 16:03 98.9 97 16 114/54 97 06/21/17 14:30 98.2 97 18 138/77 98 06/21/17 12:29 97.3 71 15 134/61 99 06/21/17 11:52 97.6 74 17 118/67 99 06/21/17 11:51 97.6 73 17 118/67 99 06/21/17 11:27 98.4 74 18 128/60 100 06/21/17 08:51 97.4 78 15 141/82 100 06/21/17 08:35 97.8 88 16 139/74 100 06/21/17 07:53 97.7 90 14 126/64 100 06/21/17 07:38 98 21 06/21/17 04:54 91 06/21/17 03:49 98.4 97 17 103/53 99 06/21/17 00:40 91 Result Diagram: 06/21/17 1622 06/20/17 0620 Laboratory Results Laboratory Tests Test 06/21/17 06/21/17 07:20 16:22 White Blood Count 12.5 TH/MM3 Red Blood Count 4.63 MIL/MM3 Hemoglobin 7.8 GM/DL 9.2 GM/DL Hematocrit 26.8 % 30.5 % Mean Corpuscular Volume 58.0 FL Mean Corpuscular Hemoglobin 16.8 PG Mean Corpuscular Hemoglobin 28.9 % Concent Red Cell Distribution Width 19.0 % Platelet Count 405 TH/MM3 Mean Platelet Volume 9.1 FL Neutrophils (%) (Auto) 74.7 % Lymphocytes (%) (Auto) 19.0 % Monocytes (%) (Auto) 5.8 % Eosinophils (%) (Auto) 0.0 % Basophils (%) (Auto) 0.5 % Neutrophils # (Auto) 9.3 TH/MM3 Lymphocytes # (Auto) 2.4 TH/MM3 Monocytes # (Auto) 0.7 TH/MM3 Eosinophils # (Auto) 0.0 TH/MM3 Basophils # (Auto) 0.1 TH/MM3 CBC Comment DIFF FINAL Differential Comment Culture Results Microbiology Date/Time Procedure Status Source Growth 06/21/17 15:39 Stool Occult Blood (MARI) - Final Complete Stool Stool HEMOCCULT NEGATIVE Objective Remarks GENERAL: nad SKIN: Warm and dry. NECK: Supple, trachea midline. No JVD or lymphadenopathy. LYMPHATIC: No adenopathy. CARDIOVASCULAR: Regular rate and rhythm without murmurs. RESPIRATORY: Breath sounds equal bilaterally. No accessory muscle use. GASTROINTESTINAL: Abdomen soft, non-tender, nondistended. EXTREMITIES: No cyanosis, or edema. Assessment/Plan Problem List: (1) Dyspnea Status: Acute (2) Acute asthma exacerbation Status: Acute (3) Elevated d-dimer Status: Acute (4) Chest pain of uncertain etiology Status: Acute (5) Anemia Status: Acute (6) Leukocytosis Status: Acute (7) Acute kidney injury Status: Acute (8) Iron deficiency Status: Acute Assessment 21-year-old -[place] female who has a history of asthma and is obese. She also has a history of menorrhagia and anemia. She presents to the emergency department with chest pain, shortness of breath and chest tightness. 1. Severe microcytic anemia. Anemia studies are consistent with iron deficiency. - getting iron infusion - no evidence of hemolysis - B12 / folate levels pending - Hep and HIV profile negative - Symptomatic anemia--will transfuse 2 units of PRBC - Will need outpatient follow-up to receive iron infusions - follow-up on stool heme-occult 2. Chest pain, possibly due to anemia. VQ scan showed low probability of pulmonary embolism. 3. Leukocytosis with WBC of 13 and low-grade fevers. The likelihood of underlying ? viral infection. Further workup per primary team. 4. Acute kidney insufficiency, likely prerenal. normal Cr now STOOL OCCULT NEGATIVE OK TO D/C AFTER pRBC transfusion completed Problem Qualifiers (1) Anemia: Qualified Code: D64.9 - Anemia, unspecified type (2) Leukocytosis: Qualified Code: D72.828 - Other elevated white blood cell (WBC) count Abdulkadir Ramirez MD Jun 22, 2017 00:23
--- NOTE | 2017-06-22 13:38 | HHI.DS ---
cc: Abdulkadir Ramirez MD Discharge Summary Admission Date Jun 19, 2017 at 2:13 am Discharge Date: Jun 22, 2017 Admitting Diagnosis Asthma, chest pain (1) Chest pain of uncertain etiology ICD Code: R07.89 Diagnosis: Principal (2) Acute asthma exacerbation ICD Code: J45.901 Diagnosis: Principal (3) Elevated d-dimer ICD Code: R79.89 Diagnosis: Secondary (4) Acute kidney injury ICD Code: N17.9 Diagnosis: Secondary (5) Leukocytosis ICD Code: D72.829 Diagnosis: Secondary (6) Anemia ICD Code: D64.9 Diagnosis: Principal Procedures NONE Brief History - From Admission 21 y/o female with a history of asthma presented to the [facility] with complaints of cough and chest tightness. She was found to have an elevated D- dimer and was taken for CTA but the timing of the dye did not allow for a clear picture so she was transferred to the main facility for follow up VQ Scan for possible PE. Patient states she woke up out of her sleep with a severe cough and dyspnea. With the cough she experienced chest tightness without any radiation and it was worse when she coughs. She states she has not had an asthma attack in many years and this one felt different. She did use her inhaler at home with no relief. She is currently resting, denies any chest pain , sob, fever or chills. She states she feels much better and is hungry. Denies any headache, nausea, vomiting, or dysuria. Denies any dark stools or heavy menses. She does have irregular menses and was taking control but that has not been recently. Denies any episodes of sitting for long periods of time, no history of PE or blood clotting disorders. 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 CBC/BMP: 06/21/17 1622 06/20/17 0620 Significant Findings Laboratory Tests Test 06/20/17 06/21/17 06/21/17 06:20 07:20 16:22 White Blood Count 17.4 TH/MM3 12.5 TH/MM3 (4.0-11.0) (4.0-11.0) Hemoglobin 7.4 GM/DL 7.8 GM/DL 9.2 GM/DL (11.6-15.3) (11.6-15.3) (11.6-15.3) Hematocrit 24.9 % 26.8 % 30.5 % (35.0-46.0) (35.0-46.0) (35.0-46.0) Mean Corpuscular Volume 57.2 FL 58.0 FL (80.0-100.0) (80.0-100.0) Mean Corpuscular Hemoglobin 16.9 PG 16.8 PG (27.0-34.0) (27.0-34.0) Mean Corpuscular Hemoglobin 29.6 % 28.9 % Concent (32.0-36.0) (32.0-36.0) Red Cell Distribution Width 19.2 % 19.0 % (11.6-17.2) (11.6-17.2) Neutrophils (%) (Auto) 81.1 % 74.7 % (16.0-70.0) (16.0-70.0) Monocytes (%) (Auto) 8.3 % (0.0-8.0) Neutrophils # (Auto) 14.1 TH/MM3 9.3 TH/MM3 (1.8-7.7) (1.8-7.7) Monocytes # (Auto) 1.4 TH/MM3 (0-0.9) Haptoglobin 277 MG/DL (30-200) Chloride Level 108 MEQ/L (98-107) Random Glucose 112 MG/DL (74-106) Total Bilirubin LESS THAN 0.1 MG/DL (0.2-1.0) Aspartate Amino Transf 5 U/L (16-38) (AST/SGOT) Albumin 3.0 GM/DL (3.4-5.0) Imaging Last Impressions Chest X-Ray 06/19/17 1108 Signed Impressions: Service Date/Time: Monday, June 19, 2017 13:48 - CONCLUSION: No acute disease. El Solano MD Lung Scan-V Nuclear Medicine 06/19/17 0000 Signed Impressions: Service Date/Time: Monday, June 19, 2017 10:44 - CONCLUSION: Low probability scan for pulmonary embolism Nickolas Waldron MD Lower Extremity Ultrasound 06/19/17 0000 Signed Impressions: Service Date/Time: Monday, June 19, 2017 08:03 - CONCLUSION: Negative for deep venous thrombosis. Zack Cox MD FACR PE at Discharge GENERAL: Well-nourished, well-developed young AA female patient in [facility]. SKIN: Warm and dry. No rash. HEENT: Normocephalic. Atraumatic.Pupils equal and round. Mucous membranes pink and moist. CARDIOVASCULAR: Regular rate and rhythm. S1, S2 noted. No murmur appreciated. RESPIRATORY: No accessory muscle use. Clear to auscultation. Breath sounds equal bilaterally. GASTROINTESTINAL: Abdomen soft, non-tender, nondistended. Normoactive bowel sounds x4. MUSCULOSKELETAL: No obvious deformities. Extremities without clubbing, cyanosis , or edema. NEUROLOGICAL: Awake and alert. No obvious cranial nerve deficits. Motor grossly within normal limits. Normal speech. PSYCHIATRIC: Appropriate mood and affect; insight and judgment normal. Hospital Course 21-year-old female with a history of asthma and anemia presented to the [facility] ED with complaints of cough and chest tightness. She was found to have an elevated D-dimer and was taken for CTA but the timing of the dye did not allow for a clear picture so she was transferred to [facility] for follow up VQ Scan for possible PE. Acute asthma exacerbation with acute bronchitis: presented with SOB/chest tightness. Given albuterol nebs, IV solumedrol changed to po prednisone, no further wheezing, received 3days of steroids, discontinued prednisone at discharge. Patient remained stable on room air throughout admission. Given Levaquin for acute bronchitis. Symptoms resolved. Chest pain: suspect chest pain secondary to acute asthma exacerbation vs anemia , however with elevated d-dimer, r/o PE and ACS. D dimer 0.95, ACS rule out with serial troponin negative x2, EKG reviewed shows sinus tachycardia. CTA reviewed, due to opacification of pulmonary arteries and respiratory movement, PE can not be excluded. VQ scan with low probability for PE. Doppler U/S negative for DVT. S/p full strength Lovenox for prophylaxis. Chest pain resolved. Microcytic Anemia: hgb 7.8, patient reports history of anemia but unknown etiology, does have menorrhagia however LMP 1 month ago. CBC with briones-jolly bodies, target cells. Iron panel consistent with iron deficiency, started ferrous sulfate bid with colace, Consulted hematology for further evaluation of anemia, seen by Dr. Ramirez, initially given IV Venofer, however hgb dropped to 7.4 , therefore ordered 2u pRBCs transfusion. Repeat Hgb 9.2. Hemoccult negative. Discharged on po ferrous sulfate 325mg bid with colace. Ordered mandatory outpatient f/up with hematology Dr. Ramirez. Acute kidney injury: suspect secondary to dehydration. Creatinine 1.2, unknown baseline. Give IVF for hydration. Repeat BMP shows improvement Cr 1.04. Resolved. Pt Condition on Discharge: Stable Discharge Disposition: Discharge Home Discharge Time: <= 30 minutes Discharge Instructions DIET: Follow Instructions for: As Tolerated, No Restrictions Activities you can perform: Regular-No Restrictions Follow up Referrals: Oncology - 1 Week with Abdulkadir Ramirez MD PCP Follow-up - 1 Week New Medications: Docusate Sodium (Dok) 100 Mg Cap 100 MG PO BID Prevent Constipation #60 CAP Ferrous Sulfate (Ferosul) 325 Mg Tablet 325 MG PO BID@12,17 Build Red Blood Cells #60 Ref 2 TAB Levofloxacin (Levaquin) 750 Mg Tablet 750 MG PO DAILY bronchitis #2 TAB Continued Medications: Albuterol 8.5 GM Inh (Proair Hfa 8.5 GM Inh) 90 Mcg/Act Aer 2 PUFF INH Q4-6H 108 mcg/actuation PRN SHORTNESS OF BREATH #1 Ref 0 INHALER Albuterol Neb (Albuterol Neb) 1.25 Mg/3 Ml Neb 1.25 MG NEB Q6HR NEB PRN SHORTNESS OF BREATH #50 Ref 0 NEBULE Ericka Stephens PA-C Jun 22, 2017 13:38 Tony Guerra DO Jun 24, 2017 22:36
== END 2017-06-21 18:47 | disposition home or self-care (01) ==
LOC: NEDDLT 02:11 → NEPFCDU 02:13
PROVIDERS: ADMIT Hospitalist; ATTEND Hospitalist
DX: R07.89 Other chest pain (principal); J45.901 Unspecified asthma with (acute) exacerbation; R79.89 Other specified abnormal findings of blood chemistry; N17.9 Acute kidney failure, unspecified; D72.829 Elevated white blood cell count, unspecified; D64.9 Anemia, unspecified; D50.9 Iron deficiency anemia, unspecified
CPT/HCPCS: 36430; 71010; 71275; 78582; 80048; 80076; 81001; 82247; 82248; 82272; 82550; 82552; 82607; 82728; 82747; 83010; 83020; 83036; 83540; 83550; 83615; 84443; 84484; 84702; 85014; 85018; 85025; 85044; 85379; 85610; 85652; 85730; 86703; 86705; 86803; 86850; 86900; 86901; 86920; 87340; 93005; 93970; 94640; 94664; A9540; A9567; G0378; J1200; J1650; J1756; J1956; J2920; J7050; J7512; J7613; P9016; Q9967; 96372; 96374